=== PATIENT | male | born 1965 | race Caucasian/White ===

== ENCOUNTER 2022-01-05 13:48 | Emergency (ER) | payer MEDICAID ==
[2022-01-05] MEDS ORDERED: Meclizine 12.5 MG Tab PO ONE (15:22)
[2022-01-05] MEDS ORDERED: Ondansetron 4 MG Tab.DIS PO ONE (15:22)
== END 2022-01-05 17:08 | disposition home or self-care (01) ==
LOC: JD.ED 13:48
DX: F07.81 Postconcussional syndrome (principal); R42 Dizziness and giddiness; E78.00 Pure hypercholesterolemia, unspecified; I10 Essential (primary) hypertension
CPT/HCPCS: 70450; 99284; A9270

== ENCOUNTER 2023-02-10 12:23 | Emergency (ER) | payer OTHER, MEDICAID ==
[2023-02-10] MEDS ORDERED: Ketorolac 60 MG/2 ML SDV IM ONE (12:55)
== END 2023-02-10 14:05 | disposition home or self-care (01) ==
LOC: JD.ED 12:23
DX: S90.31XA Contusion of right foot, initial encounter (principal); I10 Essential (primary) hypertension; Z88.0 Allergy status to penicillin; Z79.899 Other long term (current) drug therapy; X58.XXXA Exposure to other specified factors, initial encounter; Y93.39 Activity, other involving climbing, rappelling and jumping off
CPT/HCPCS: 73630; 96372; 99283; J1885; 99282

== ENCOUNTER 2023-05-03 18:19 | Emergency (ER) | payer MEDICAID, OTHER ==
[2023-05-03] MEDS: Diphtheria,Pertussis(Acell),Tetanus Vaccine 0.5 ML Syringe IM ONE (19:42)
[2023-05-03] MEDS: Sulfamethoxazole/Trimethoprim 800-160 MG Tab PO ONE (20:33)
== END 2023-05-03 20:56 | disposition home or self-care (01) ==
LOC: JD.ED 18:19
DX: S61.432A Puncture wound without foreign body of left hand, initial encounter (principal); I10 Essential (primary) hypertension; E78.00 Pure hypercholesterolemia, unspecified; Z23 Encounter for immunization; Z79.899 Other long term (current) drug therapy; Z88.0 Allergy status to penicillin; W22.8XXA Striking against or struck by other objects, initial encounter
CPT/HCPCS: 12001; 73130; 90471; 90715; 99283; A9270